=== PATIENT | female | born 1990 | race Hispanic/Latino ===

== ENCOUNTER → 2022-06-17 08:54 | Outpatient (CLI) | payer OTHER, SELFPAY ==
[2022-06-17 13:40] LABS: Urine N gonorrhoeae NOT DETECTED
[2022-06-17 13:52] LABS: Urine Chlamydia NOT DETECTED
== END ==
PROVIDERS: Visit Provider Obstetrics & Gynecology
DX: Z34.01 Encounter for supervision of normal first pregnancy, first trimester (principal); Z3A.08 8 weeks gestation of pregnancy
CPT/HCPCS: 87491; 87591

== ENCOUNTER → 2022-07-16 09:34 | Outpatient (CLI) | payer OTHER, SELFPAY ==
[2022-07-16 12:35] LABS: Appearance Urine UA CLEAR; Bilirubin Urine UA NEGATIVE (NEGATIVE); Color Urine UA YELLOW; Glucose Urine UA NEGATIVE (Negative); Ketones Urine UA NEGATIVE (NEGATIVE); Leukocyte Esterase Urine UA NEGATIVE (NEGATIVE); Nitrite Urine UA NEGATIVE (Negative); Occult Blood Urine UA NEGATIVE (Negative); Protein Urine UA NEGATIVE (Negative); Specific Gravity Urine UA 1.015 (1.000-1.035); Urobilinogen Urine UA 0.2 E.U./dL (0.2)
[2022-07-16 12:51] LABS: pH Urine UA 6.5 (4.5-8.0)
== END ==
PROVIDERS: Visit Provider Obstetrics & Gynecology
DX: Z34.01 Encounter for supervision of normal first pregnancy, first trimester (principal)
CPT/HCPCS: 81003; 87086

== ENCOUNTER → 2022-07-16 09:51 | Outpatient (CLI) | payer OTHER, SELFPAY ==
[2022-07-16 10:56] LABS: Add Manual Diff / Slide Review NO; Basophils Absolute Auto 0 /uL (0-100); Basophils Percent Auto 0.3 % (0-2); Eosinophils Absolute Auto 200 /uL (0-450); Eosinophils Percent Auto 2.7 % (2-4); Hematocrit 36.8 % (36-46); Lymphocytes Absolute Auto 1500 /uL (1100-4500); Lymphocytes Percent Auto 16.7 % (25-40); Mean Corpuscular HGB Conc 32.5 % (30-36); Mean Corpuscular Hemoglobin 25.6 PG (26-34); Mean Corpuscular Volume 78.8 fL (80-100); Monocytes Absolute Auto 600 /uL (0-900); Neutrophils Absolute Auto 6500 /uL (1500-7000); Neutrophils Percent Auto 73.3 % (50-75); Platelet Count 135 X10^3/uL (150-400); Red Blood Cell Count 4.67 X10^6/uL (4.0-5.2); Red Cell Distribution Width 19.1 % (11.6-14.8); White Blood Cell Count 8.8 X10^3/uL (4.5-11.0)
[2022-07-16 11:29] LABS: Alanine Aminotransferase 27 IU/L (<35); Alkaline Phosphatase 83 U/L (38-126); Aspartate Aminotransferase 43 IU/L (14-36); BUN Creatinine Ratio 6.5 (6-22); Bilirubin Total 0.7 mg/dL (0.2-1.3); Blood Urea Nitrogen 4 mg/dL (7-17); Carbon Dioxide 23 mmol/L (22-32); Chloride 104 mmol/L (98-107); Estimated Glomerular Filt Rate > 60 mL/min (>60); Globulin 4.2 g/dL (1.7-4.1); Glucose 80 mg/dL (70-100); HEMOLYSIS < 15 (0-50); Potassium 3.8 mmol/L (3.4-5.1); Sodium 135 mmol/L (137-145); Total Protein 8.2 g/dL (6.3-8.2)
[2022-07-16 20:11] LABS: HIV 1 & 2 Ab/Ag 4th Gen Combo NEGATIVE (NEGATIVE); Hep C Virus Ab w/Reflex Quant NEGATIVE s/c (NEGATIVE)
[2022-07-17 08:48] LABS: Varicella IgG Antibody 1800 index (Immune >165)
[2022-07-18 15:43] LABS: Hepatitis B Surface Antigen NEGATIVE s/c (NEGATIVE)
[2022-07-31 12:59] LABS: RPR Screen Reactive
== END ==
PROVIDERS: Referring Provider Obstetrics & Gynecology; Visit Provider Obstetrics & Gynecology
DX: Z34.01 Encounter for supervision of normal first pregnancy, first trimester (principal); R79.89 Other specified abnormal findings of blood chemistry
CPT/HCPCS: 36415; 80053; 80055; 81003; 86787; 86803; 86850; 86870; 86880; 86900; 86901; 87086; 87389

== ENCOUNTER → 2022-08-19 10:47 | Outpatient (CLI) | payer OTHER, SELFPAY ==
[2022-08-19 13:03] LABS: HEMOLYSIS < 15 (0-50); Iron 92 ug/dL (37-170)
[2022-08-19 13:16] LABS: Percent Iron Saturation 21 % (15-50); Total Iron Binding Capacity 439 ug/dL (265-497); Transferrin 306 mg/dL (206-381)
[2022-08-19 16:03] LABS: Ferritin 15 ng/mL (6-137)
[2022-08-21 19:49] LABS: AFP Value 60.6 ng/mL (.); Gest Age on Col Date 17.1 weeks (.); Insulin Dep Diabetes No (.); OSBR Risk 1IN 1630 (.); Results Report (.); Test Results *Screen Negative* (.)
== END ==
PROVIDERS: Referring Provider Obstetrics & Gynecology; Visit Provider Obstetrics & Gynecology
DX: Z34.82 Encounter for supervision of other normal pregnancy, second trimester (principal); R71.8 Other abnormality of red blood cells; Z3A.17 17 weeks gestation of pregnancy
CPT/HCPCS: 36415; 82105; 82728; 83540; 83550

== ENCOUNTER → 2022-09-18 09:26 | Outpatient (CLI) | payer OTHER, SELFPAY ==
--- NOTE | 2022-09-18 09:29 | DI.US.S_ITS ---
PROCEDURE: US OB >= 14 WEEKS FETUS INDICATIONS: ANATOMY OUTSIDE/PRIOR DATING DATA: Last menstrual period (LMP): 04/21/2022. LMP-based estimated date of delivery (CLAYTON): 01/26/2023. First dating scan (date and location): 06/17/2022 at referring physician's office. Estimated date of delivery ([place]) from first dating scan: 01/20/2023. The calculations are made using the working CLAYTON of 01/20/2023. TECHNIQUE: Real-time scanning was performed of the fetus, with image documentation and biometric measurements. COMPARISON: [facility], , OB <= 14 WEEKS FETUS, 06/17/2022, 9:40. FINDINGS: General: A single living intrauterine gestation is present. Presentation: Vertex. Placenta: Placental position is posterior , without previa. Amniotic fluid index: 14.9 cm, normal range is 5-24 cm. Single deepest vertical pocket is 4.1 cm. heart rate: 158 beats per minute. Maternal cervical canal: 4.1 cm long. Normal lower limit is 2.5 cm. biometrics: Biparietal diameter: 22 weeks 5 days Head circumference: 23 weeks 0 day Abdominal circumference: 22 weeks 2 days Femur length: 22 weeks 6 days Clinically estimated gestational age: 22 weeks 2 days Composite gestational age from present scan: 22 weeks 5 days Estimated weight and percentile: 513 g; 57% Anatomic survey: Neuro: Ventricles are non-dilated at less than 10 mm. Cisterna magna is normal at 3-11 mm. Cerebellum is normal in size and morphology. Nuchal skin fold: Normal at less than 6 mm between 14-21 weeks gestational age. Face: Nose and lips, facial profile are normal. Spine: No evidence for spina bifida. Heart: 4-chambered heart is present, with normal ventricular outflow tracts. Diaphragm: Diaphragm is intact. Stomach: Left-sided stomach is present. Kidneys: No hydronephrosis. Normal is less than 5 mm in 2nd trimester, less than 7 mm in 3rd trimester. Cord: 3-vessel cord has orthotopic insertion. Bladder: Normal in size. Extremities: All 4 extremities identified. IMPRESSION: 1. A single living intrauterine gestation with appropriate interval growth. 2. Normal anatomic survey. We strive to produce accurate, complete, and clear reports of imaging services. To assist us in improving patient care, this report was composed using standard report templates and voice recognition software. Therefore, it may contain abnormal punctuation, insertions and/or omissions. Occasional wrong-word or sound-alike substitutions may occur. Though we review the report and make efforts to correct it, we do recommend that the report be read carefully in proper context to recognize any text inaccuracies. Dictated by: Meenakshi Ernst M.D. on 09/18/2022 at 12:37 Approved by: Meenakshi Ernst M.D. on 09/18/2022 at 12:42
== END ==
PROVIDERS: Referring Provider Obstetrics & Gynecology; Visit Provider Obstetrics & Gynecology
DX: Z36.89 Encounter for other specified antenatal screening (principal); O99.112 Other diseases of the blood and blood-forming organs and certain disorders involving the immune mechanism complicating pregnancy, second trimester; D69.6 Thrombocytopenia, unspecified; R71.8 Other abnormality of red blood cells; Z3A.22 22 weeks gestation of pregnancy
CPT/HCPCS: 36415; 76811; 83021; 85027

== ENCOUNTER → 2022-09-18 10:24 | Outpatient (CLI) | payer OTHER, SELFPAY ==
[2022-09-18 12:28] LABS: Hematocrit 32.7 % (36-46); Mean Corpuscular HGB Conc 33.6 % (30-36); Mean Corpuscular Hemoglobin 28.2 PG (26-34); Mean Corpuscular Volume 83.9 fL (80-100); Platelet Count 112 X10^3/uL (150-400); Red Cell Distribution Width 15.8 % (11.6-14.8); White Blood Cell Count 8.3 X10^3/uL (4.5-11.0)
== END ==
PROVIDERS: Referring Provider Obstetrics & Gynecology; Visit Provider Obstetrics & Gynecology
DX: O99.119 Other diseases of the blood and blood-forming organs and certain disorders involving the immune mechanism complicating pregnancy, unspecified trimester (principal); D69.6 Thrombocytopenia, unspecified; R71.8 Other abnormality of red blood cells
CPT/HCPCS: 36415; 83021; 85027

== ENCOUNTER → 2022-09-30 14:24 | Outpatient (CLI) | payer OTHER, SELFPAY ==
[2022-10-02 04:36] LABS: Candida species Positive (Negative); Gardnerella vaginalis Negative (Negative); Trichomoas vaginalis Negative (Negative)
== END ==
PROVIDERS: Visit Provider Obstetrics & Gynecology
DX: M54.9 Dorsalgia, unspecified (principal); O99.891 Other specified diseases and conditions complicating pregnancy; N89.8 Other specified noninflammatory disorders of vagina; D69.6 Thrombocytopenia, unspecified
CPT/HCPCS: 36415; 85049; 87086; 87255; 87480; 87510; 87660

== ENCOUNTER → 2022-09-30 14:53 | Outpatient (CLI) | payer OTHER, SELFPAY ==
[2022-09-30 15:25] LABS: Platelet Count 114 X10^3/uL (150-400)
== END ==
PROVIDERS: Referring Provider Obstetrics & Gynecology; Visit Provider Obstetrics & Gynecology
DX: D69.6 Thrombocytopenia, unspecified (principal)
CPT/HCPCS: 36415; 85049

== ENCOUNTER → 2022-10-23 11:13 | Outpatient (CLI) | payer OTHER, SELFPAY ==
[2022-10-23 12:53] LABS: Hematocrit 35.7 % (36-46); Hemoglobin 11.8 g/dL (12.0-16.0); Mean Corpuscular HGB Conc 33.2 % (30-36); Mean Corpuscular Hemoglobin 28.5 PG (26-34); Mean Corpuscular Volume 85.9 fL (80-100); Platelet Count 100 X10^3/uL (150-400); Red Blood Cell Count 4.15 X10^6/uL (4.0-5.2); Red Cell Distribution Width 15.6 % (11.6-14.8); White Blood Cell Count 9.1 X10^3/uL (4.5-11.0)
[2022-10-23 14:05] LABS: GTT (PREG) 1 Hour PP 50gm Dose 94 mg/dL (76-139)
== END ==
PROVIDERS: Referring Provider Obstetrics & Gynecology; Visit Provider Obstetrics & Gynecology
DX: O99.019 Anemia complicating pregnancy, unspecified trimester; Z3A.24 24 weeks gestation of pregnancy; D69.6 Thrombocytopenia, unspecified
CPT/HCPCS: 36415; 82950; 85027

== ENCOUNTER → 2022-11-26 13:52 | Outpatient (CLI) | payer OTHER, SELFPAY ==
[2022-11-26 14:20] LABS: Add Manual Diff / Slide Review NO; Basophils Absolute Auto 100 /uL (0-100); Basophils Percent Auto 0.5 % (0-2); Eosinophils Absolute Auto 300 /uL (0-450); Eosinophils Percent Auto 2.6 % (2-4); Hematocrit 34.1 % (36-46); Hemoglobin 11.3 g/dL (12.0-16.0); Lymphocytes Absolute Auto 1400 /uL (1100-4500); Lymphocytes Percent Auto 12.7 % (25-40); Mean Corpuscular Hemoglobin 29.1 PG (26-34); Mean Corpuscular Volume 88.1 fL (80-100); Monocytes Absolute Auto 1100 /uL (0-900); Monocytes Percent Auto 9.5 % (3-14); Neutrophils Absolute Auto 8200 /uL (1500-7000); Neutrophils Percent Auto 74.7 % (50-75); Platelet Count 103 X10^3/uL (150-400); Red Blood Cell Count 3.87 X10^6/uL (4.0-5.2); Red Cell Distribution Width 15.5 % (11.6-14.8); White Blood Cell Count 11.1 X10^3/uL (4.5-11.0)
== END ==
PROVIDERS: Referring Provider Physician Assistant Medical; Visit Provider Physician Assistant Medical
DX: O99.119 Other diseases of the blood and blood-forming organs and certain disorders involving the immune mechanism complicating pregnancy, unspecified trimester (principal); D69.6 Thrombocytopenia, unspecified
CPT/HCPCS: 36415; 85025

== ENCOUNTER 2022-12-01 16:08 | Inpatient (IN) | payer OTHER, SELFPAY ==
[2022-12-01 16:10] VITALS: BP 193/109; PULSE 105; RESP 16; TEMP 36.6; O2SAT 97; BMI 42.4
--- NOTE | 2022-12-01 16:15 | PC.NURSE ---
patient was seen at the walk in clinic who sent her here because she is a 32 weeks and her blood pressure 190's systolic. she complains of 1 week of shortness of breath that has been worse over the past few days. she reports some sinus pressure and a headache. she reports bilateral hands and feet swelling. she denies fevers but reports chills. denies abdominal pain. Dr. Yudi gunn.
[2022-12-01 16:24] VITALS: PULSE 99; O2SAT 98
--- NOTE | 2022-12-01 16:25 | ED_ITS ---
HPI - General Chief complaint: Hypertension Stated complaint: High BP/32 Weeks /R/O Preeclampsia/WIC Time Seen by Provider: 12/01/22 16:14 Source: patient and old records reviewed Mode of arrival: Wheelchair Limitations: no limitations History of Present Illness HPI Narrative: This is a 32-year-old female at 32 weeks with no history of gestational hypertension or diabetes. Patient states she is had a little bit of a headache kind of felt shaky and just unwell for the past 2 or 3 days. She states feels a little short of breath today. No chest pain. She has not had any abdominal pain although she states when they palpated her abdomen in the walk-in clinic she would some white upper quadrant discomfort. She denies any nausea or vomiting. No GI or urinary symptoms. She states baby has been moving. No vaginal fluid leaks or bleeding. Patient was noted the walk-in clinic to be hypertensive have a headache and was recommended to come to us. Patient states she has not noticed any twitching or hyperreflexia. She states she is following with OB, Dr. [facility] and been told during her that she has had normal blood pressures. She states her glucose testing was normal, her only medications are Tylenol and . She states she is had wisdom tooth surgery in the past but denies any other prior surgeries. Patient states no tobacco, no alcohol, no illicit. No known drug allergies. She is unsure for family history states adopted. Her is currently deployed in [facility] with the . She states her mother lives in [place]. Related Data Home Medications Medication Instructions Recorded Confirmed cetirizine 10 mg capsule (Zyrtec) 10 mg PO DAILY PRN 06/06/22 12/01/22 prenat.vits,ken,[id number] 1 tab PO DAILY 06/06/22 12/01/22 Previous Rx's Medication Instructions Recorded ferrous sulfate 325 mg (65 mg 325 mg PO DAILY #90 tabs 09/19/22 iron) tablet nystatin-triamcinolone 100,000 1 applic topical BID 10 days #15 10/02/22 unit/gram-0.1 % topical ointment grams Allergies Allergy/AdvReac Type Severity Reaction Status Date / Time No Known Allergies Allergy Verified 12/01/22 15:42 Review of Systems Review of Systems ROS Unobtainable: All systems reviewed & are unremarkable except as noted in HPI and below Exam Narrative Exam Narrative: GENERAL: Alert and oriented x three, female with BMI of 42 mild distress. HEENT: Head normocephalic, atraumatic, EOMI, pupils reactive, face symmetric, moist mucous membranes NECK: Supple, full range of motion CARDIOVASCULAR: Slightly tachycardic regular rate and rhythm without murmurs, rubs or gallops. No JVD. Positive edema bilateral lower extremities. RESPIRATORY: Breath sounds equal bilaterally, no wheezes rales or rhonchi. No tachypnea or accessory muscle use. ABDOMEN: Soft, nontender on exam for myself. Normoactive bowel sounds all 4 quadrants. No guarding or rebound, rigidity, no mass, gravid. Nontender. No contractions palpated. : No CVA tenderness EXTREMITIES: Normal range of motion, no clubbing, +edema. Neurovascularly intact NEUROLOGICAL: Cranial nerves II through XII grossly intact. Moving all extremities, patient does not have any hyperreflexia patellar bilaterally. No clonus. SKIN: Warm, dry, no petechiae, no rashes or lesions. Initial Vital Signs Initial Vital Signs: Vital Signs Temperature 97.8 F 12/01/22 16:10 Pulse Rate 105 H 12/01/22 16:10 Respiratory Rate 16 12/01/22 16:10 Blood Pressure 193/109 H 12/01/22 16:10 Pulse Oximetry 97 12/01/22 16:10 Oxygen Delivery Method 12/01/22 16:10 Course Orders Ordered: ED Orders 12/01/22 16:28 CBC Auto Diff [Complete Blood Count AUTO DIFF] Stat CMP [Comprehensive Metabolic Panel] Stat Lipase Stat PTT [Partial Thromboplastin Time] Stat Prothrombin Time INR Stat Uric Acid Stat 12/01/22 16:29 Covid-19 + FLU A/B + RSV - PCR Stat 12/01/22 16:34 US abdomen limited Stat Lactated Ringer's (Lactated Ringers) 1,000 mls @ 42 mls/hr IV CONT RIMA Last Admin: 12/01/22 17:17 Dose: 42 mls/hr Documented By: MERCED Magnesium Sulfate (Magnesium Sulfate) 20 gm in 500 mls @ 50 mls/hr IV CONT RIMA Last Admin: 12/01/22 18:18 Dose: 50 mls/hr Documented By: MERCED Co-signed By: GUILLERMO Labetalol HCl (Labetalol 20 Mg/4 Ml Syringe) 20 mg IV NOW ONE; Protocol Stop: 12/01/22 18:28 Discontinued Medications Magnesium Sulfate 6 gm/ Sodium (Chloride) 112 mls @ 112 mls/hr IV NOW ONE Stop: 12/01/22 17:41 Last Admin: 12/01/22 17:05 Dose: 112 mls/hr Documented By: MERCED Magnesium Sulfate 5 gm/Magnesium Sulfate 1 gm/ Sodium Chloride 112 mls @ 112 mls/hr IV NOW ONE Stop: 12/01/22 18:14 Labetalol HCl (Labetalol 20 Mg/4 Ml Syringe) 10 mg IV NOW ONE; Protocol Stop: 12/01/22 16:39 Last Admin: 12/01/22 16:59 Dose: 10 mg Documented By: MERCED Labetalol HCl (Labetalol 20 Mg/4 Ml Syringe) 10 mg IV NOW ONE; Protocol Stop: 12/01/22 17:34 Last Admin: 12/01/22 17:35 Dose: 10 mg Documented By: MERCED Labetalol HCl (Labetalol 20 Mg/4 Ml Syringe) 10 mg IV NOW ONE; Protocol Stop: 12/01/22 17:49 Labetalol HCl (Labetalol 100 Mg Tablet) 200 mg PO NOW ONE Stop: 12/01/22 18:10 Consultations Consultation #1: Dr. Francis, faculty criminal justice: Discussed with Dr. Francis patient is quite hypertensive 180s to 190s systolic with 110s diastolic onto checks and patient was 196/110 at the walk-in clinic. She is had headache, some mild right upper quadrant pain. Labs have been obtained discussed will start labetalol 10 mg IV and magnesium 6 cramps. He agrees with plan to transfer patient over to labor and delivery and he will see the patient over there. Time: 16:42 Vital Signs Vital signs: Vital Signs - 8 hr 12/01/22 16:10 12/01/22 16:24 12/01/22 16:30 Temperature 97.8 F Pulse Rate 105 H 99 H Respiratory Rate 16 Blood Pressure 193/109 H 187/90 H Pulse Oximetry 97 98 Oxygen Delivery Method Room Air 12/01/22 16:30 Temperature Pulse Rate 86 Respiratory Rate Blood Pressure Pulse Oximetry 100 Oxygen Delivery Method Room Air MDM - OB/Uterine Contractions Lab Data Result diagrams: 12/01/22 16:28 12/01/22 16:28 Labs: Lab Results 12/01/22 12/01/22 12/01/22 Range/Units 16:21 16:28 16:28 WBC 11.6 H (4.5-11.0) X10^3/uL RBC 4.02 (4.0-5.2) X10^6/uL Hgb 11.7 L (12.0-16.0) g/dL Hct 35.1 L (36-46) % MCV 87.4 (80-100) fL MCH 29.2 (26-34) PG MCHC 33.4 (30-36) % RDW 15.5 H (11.6-14.8) % Plt Count 106 L (150-400) X10^3/uL Neut % (Auto) 79.1 H (50-75) % Lymph % (Auto) 10.5 L (25-40) % Russell % (Auto) 7.9 (3-14) % Eos % (Auto) 1.9 L (2-4) % Baso % (Auto) 0.6 (0-2) % Neut # (Auto) 9100 H (4000-6159) /uL Lymph # (Auto) 1200 (9735-2054) /uL Russell # (Auto) 900 (0-900) /uL Eos # (Auto) 200 (0-450) /uL Baso # (Auto) 100 (0-100) /uL PT 11.3 (10.1-12.7) SECONDS INR 1.0 (0.9-1.3) APTT 55 H (26-36) SECONDS Sodium (137-145) mmol/L Potassium (3.4-5.1) mmol/L Chloride (98-107) mmol/L Carbon Dioxide (22-32) mmol/L BUN (7-17) mg/dL Creatinine (0.52-1.04) mg/dL Estimated GFR (>60) mL/min BUN/Creatinine Ratio (6-22) Glucose (70-100) mg/dL Uric Acid (2.5-6.2) mg/dL Calcium (8.4-10.2) mg/dL Total Bilirubin (0.2-1.3) mg/dL AST (14-36) IU/L ALT (<35) IU/L Alkaline Phosphatase (38-126) U/L Total Protein (6.3-8.2) g/dL Albumin (3.5-5.0) g/dL Globulin (1.7-4.1) g/dL Albumin/Globulin Ratio (1.0-2.8) Lipase (23-300) U/L U Random Total Protein 1492 H (0-12) mg/dL Urine Creatinine 57.7 mg/dL Protein/Creatinin Ratio 25.85 GRAM/24H SARS-CoV-2 (PCR) (Negative) Influenza A (RT-PCR) (NEGATIVE) Influenza B (RT-PCR) (NEGATIVE) RSV (PCR) (Negative) 12/01/22 12/01/22 Range/Units 16:28 16:29 WBC (4.5-11.0) X10^3/uL RBC (4.0-5.2) X10^6/uL Hgb (12.0-16.0) g/dL Hct (36-46) % MCV (80-100) fL MCH (26-34) PG MCHC (30-36) % RDW (11.6-14.8) % Plt Count (150-400) X10^3/uL Neut % (Auto) (50-75) % Lymph % (Auto) (25-40) % Russell % (Auto) (3-14) % Eos % (Auto) (2-4) % Baso % (Auto) (0-2) % Neut # (Auto) (9918-7015) /uL Lymph # (Auto) (4710-0131) /uL Russell # (Auto) (0-900) /uL Eos # (Auto) (0-450) /uL Baso # (Auto) (0-100) /uL PT (10.1-12.7) SECONDS INR (0.9-1.3) APTT (26-36) SECONDS Sodium 135 L (137-145) mmol/L Potassium 3.6 (3.4-5.1) mmol/L Chloride 108 H (98-107) mmol/L Carbon Dioxide 20 L (22-32) mmol/L BUN 17 (7-17) mg/dL Creatinine 0.90 (0.52-1.04) mg/dL Estimated GFR > 60 (>60) mL/min BUN/Creatinine Ratio 18.9 (6-22) Glucose 89 (70-100) mg/dL Uric Acid 6.3 H (2.5-6.2) mg/dL Calcium 8.2 L (8.4-10.2) mg/dL Total Bilirubin 0.7 (0.2-1.3) mg/dL AST 42 H (14-36) IU/L ALT 24 (<35) IU/L Alkaline Phosphatase 235 H (38-126) U/L Total Protein 6.9 (6.3-8.2) g/dL Albumin 3.1 L (3.5-5.0) g/dL Globulin 3.8 (1.7-4.1) g/dL Albumin/Globulin Ratio 0.8 L (1.0-2.8) Lipase 56 (23-300) U/L U Random Total Protein (0-12) mg/dL Urine Creatinine mg/dL Protein/Creatinin Ratio GRAM/24H SARS-CoV-2 (PCR) Negative (Negative) Influenza A (RT-PCR) Flu a negative (NEGATIVE) Influenza B (RT-PCR) Flu b negative (NEGATIVE) RSV (PCR) Negative (Negative) Urine Dip Bedside Urine Glucose Negative Bedside Urine Bilirubin - Negative Bedside Urine Ketone - Negative Urine Specific [place] 1.015 Bedside Urine Occult Blood + Bedside Urine pH 6.0 Bedside Urine Protein +++ 300 Bedside Urine Urobilinogen - Negative Bedside Urine Nitrite - Negative Bedside Urine Leukocytes - Negative Esterase MDM Narrative Medical decision making narrative: This is a 32-year-old female at approximately 32 weeks with so far uneventful. Patient does not have any known medical issues she is spent almost for the last couple days has symptoms with headache, some right upper quadrant discomfort increasing swelling for the last few days and found to be hypertensive in the walk-in clinic sent over here and is still persistently hypertensive. Patient's urine is positive for protein. Patient examined and findings are concerning for preeclampsia she is not hyperreflexic on examination but is edematous legs. Patient OB visits were noted she was seen on 11/26/2022 at 32 weeks and 1 day, she low platelets noted to be 135, blood pressures on prior visits from June until November are noted to range from 116-128 with diastolics maximum of 84 typically in the 60s to 70s. Labs were obtained and sent, spoke with Dr. Francis faculty criminal justice plan for labetalol 10 mg IV magnesium 6 g to be given over 30-40 minutes and agrees with plan to admit patient to L&D. We had called the L and D for [facility] and they requested that we go ahead and send the patient over and I spoke Dr. Francis agrees with this plan. He will see patient over on L and D shortly. Discharge Plan Departure Patient Disposition: Admitted As Inpatient Clinical Impression: Pre-eclampsia, 32 weeks gestation of Admit Date/Time: 12/01/22 16:47 Admit Provider: Meng Francis
[2022-12-01 16:30] VITALS: BP 187/90; PULSE 86; O2SAT 100
[2022-12-01 16:47] LABS: Add Manual Diff / Slide Review NO; Basophils Absolute Auto 100 /uL (0-100); Basophils Percent Auto 0.6 % (0-2); Eosinophils Absolute Auto 200 /uL (0-450); Eosinophils Percent Auto 1.9 % (2-4); Hematocrit 35.1 % (36-46); Hemoglobin 11.7 g/dL (12.0-16.0); Lymphocytes Absolute Auto 1200 /uL (1100-4500); Lymphocytes Percent Auto 10.5 % (25-40); Mean Corpuscular HGB Conc 33.4 % (30-36); Mean Corpuscular Hemoglobin 29.2 PG (26-34); Mean Corpuscular Volume 87.4 fL (80-100); Monocytes Absolute Auto 900 /uL (0-900); Monocytes Percent Auto 7.9 % (3-14); Neutrophils Absolute Auto 9100 /uL (1500-7000); Neutrophils Percent Auto 79.1 % (50-75); Platelet Count 106 X10^3/uL (150-400); Red Blood Cell Count 4.02 X10^6/uL (4.0-5.2); Red Cell Distribution Width 15.5 % (11.6-14.8); White Blood Cell Count 11.6 X10^3/uL (4.5-11.0)
[2022-12-01 16:50] LABS: Prothrombin Time 11.3 SECONDS (10.1-12.7)
[2022-12-01 16:53] LABS: PTT Partial Thromboplastin Tim 55 SECONDS (26-36)
[2022-12-01 16:55] LABS: Alanine Aminotransferase 24 IU/L (<35); Albumin 3.1 g/dL (3.5-5.0); Albumin Globulin Ratio 0.8 (1.0-2.8); Alkaline Phosphatase 235 U/L (38-126); Aspartate Aminotransferase 42 IU/L (14-36); BUN Creatinine Ratio 18.9 (6-22); Bilirubin Total 0.7 mg/dL (0.2-1.3); Blood Urea Nitrogen 17 mg/dL (7-17); Calcium 8.2 mg/dL (8.4-10.2); Carbon Dioxide 20 mmol/L (22-32); Chloride 108 mmol/L (98-107); Estimated Glomerular Filt Rate > 60 mL/min (>60); Globulin 3.8 g/dL (1.7-4.1); Glucose 89 mg/dL (70-100); HEMOLYSIS < 15 (0-50); Lipase 56 U/L (23-300); Potassium 3.6 mmol/L (3.4-5.1); Sodium 135 mmol/L (137-145); Total Protein 6.9 g/dL (6.3-8.2); Uric Acid 6.3 mg/dL (2.5-6.2)
[2022-12-01 16:59] VITALS: BP 205/125
[2022-12-01] MEDS: LABETALOL 20 MG/4 ML SYRINGE 10 MG IV ×2 (16:59→17:35)
[2022-12-01] MEDS: MAGNESIUM SULFATE 6 GM in SODIUM CHLORIDE 0.9% 100 ML IV (17:05)
[2022-12-01] MEDS: LACTATED RINGERS 1,000 ML 42 ML IV (17:17)
[2022-12-01 17:49] LABS: Influenza A - CEPHEID Flu A NEGATIVE (NEGATIVE); Influenza B - CEPHEID Flu B NEGATIVE (NEGATIVE); Respiratory Syncytial Virus Negative (Negative)
[2022-12-01 17:50] LABS: COVID-19 CEPHEID 4-PLEX PCR Negative (Negative)
[2022-12-01 18:02] LABS: Creatinine Urine Random 57.7 mg/dL
[2022-12-01] MEDS: MAGNESIUM SULFATE 20 GM/500 ML IV.SOLN IV (18:18)
[2022-12-01 18:20] LABS: Protein (Total) Urine Random 1492 mg/dL (0-12); Protein Creatinine Ratio Urine 25.85 GRAM/24H
--- NOTE | 2022-12-01 18:42 | PM.OBHP.1 ---
OB HPI Date/Time Date of admission: 12/01/22 Date Patient Seen: 12/01/22 Time Patient Seen: 17:00 History of Present Condition Chief complaint: High BP/32 Weeks /R/O Preeclampsia/WIC : 1 Para: 0 Estimated Date of Delivery: 01/20/23 Estimated Gestational Age (weeks): 32+1 Narrative: Chely Zhu is a 32 year old female Comments: care since 8 weeks gestation, unremakable till 48 hrs prior to admission when developed serve HANEY, and upper body swelling Indications Indication for induction OB: gestational HTN/pre-eclampsia History of Present care: good care and pounds weight gain (21) Dating criteria: LMP confirmed by 1st trimester US Narrative: none until 48 hrs ago Preadmission Labs -: Antibody screen: negative, Cystic fibrosis screen: unknown, GBS status: unknown, HBsAG: negative, HIV: negative, HSV 1: negative, HSV 2: negative and RPR/VDLR: negative -: Chlamydia screen: not detected and Gonorrhea screen: not detected -: Rubella: immune and Varicella: immune HCT: 11.1 Prior (ies) History: p0 Evaluation Evaluation Baseline heart rate: 145 Variability: Average (6-10) monitor accelerations: Present Contraction Frequency (minutes): 0 Dilation: Closed Effacement: 0-30% station: -3 Position of cervix: posterior [facility] Medical History Elevated liver enzymes Seasonal allergies Surgical History Anesthesia History of removal of skin mole [place] teeth extracted Social History marital status: number of children: 0 household members: spouse and family (sister) lives independently: Yes housing: apartment pets and animals: Yes (1 dog) education level: college (pete's degree) 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[employer]) current occupational exposures/hazards: No special rani needs: No seatbelt use: always water heater temp set < 120 deg: Yes working smoke detector in home: Yes carbon monox detector in home: Yes firearms in home: No do you feel safe at home: Yes Smoking Status: Never smoker second hand exposure: No alcohol intake: former (very rarely, not while ) substance use type: does not use during the past year weight has: remained stable well-balanced diet: rarely or never daily servings fruits/ve-1 caffeine: Yes (aware of 200mg limit) Type(s) of exercise: walking and other (lifting at work) Meds Home Medications and Allergies Home Medications Medication Instructions Recorded Confirmed Type cetirizine 10 mg capsule (Zyrtec) 10 mg PO DAILY PRN 06/06/22 12/01/22 History prenat.vits,ken,vfx-[id number] 1 tab PO DAILY 06/06/22 12/01/22 History ferrous sulfate 325 mg (65 mg 325 mg PO DAILY #90 tabs 09/19/22 12/01/22 Rx iron) tablet nystatin-triamcinolone 100,000 1 applic topical BID 10 days #15 10/02/22 12/01/22 Rx unit/gram-0.1 % topical ointment grams Allergies Allergy/AdvReac Type Severity Reaction Status Date / Time No Known Allergies Allergy Verified 12/01/22 15:42 Review of Systems Review of Systems Narrative: unchanged from OB Exam Vital signs Blood Pressure: 205/125 Pulse Rate: 93 Respiratory Rate: 16 Temperature: 98 F Narrative Exam Narrative: +1 pitting edema ankles, negative clonus, facial and and swelling HENCA Head: normocephalic and atraumatic Eyes General: appearance normal, both eyes and all related structures Resp Effort & Inspection: normal respiratory effort and able to speak in complete sentences Auscultation: clear to auscultation bilaterally Cardio Rate: regular rate Rhythm: regular rhythm Extremities Lower extremity: Yes edema DTR's: Rt Patellar: 0, Lt Patellar: 0, Rt Ankle: 0, Lt Ankle: 0, Rt Brachial: 0 and Lt Brachial: 0 GI Inspection: obesity Percussion: Yes normal to percussion Auscultation: normal bowel sounds Presentation: vertex Estimated Weight (lbs): 3 Objective Labs Result Diagrams: 12/01/22 16:28 12/01/22 16:28 Labs: Laboratory Results - last 24 hr 12/01/22 12/01/22 12/01/22 16:21 16:28 16:28 WBC 11.6 H RBC 4.02 Hgb 11.7 L Hct 35.1 L MCV 87.4 MCH 29.2 MCHC 33.4 RDW 15.5 H Plt Count 106 L Neut % (Auto) 79.1 H Lymph % (Auto) 10.5 L [place] % (Auto) 7.9 Eos % (Auto) 1.9 L Baso % (Auto) 0.6 Neut # (Auto) 9100 H Lymph # (Auto) 1200 [place] # (Auto) 900 Eos # (Auto) 200 Baso # (Auto) 100 PT 11.3 INR 1.0 APTT 55 H Sodium Potassium Chloride Carbon Dioxide BUN Creatinine Estimated GFR BUN/Creatinine Ratio Glucose Uric Acid Calcium Total Bilirubin AST ALT Alkaline Phosphatase Total Protein Albumin Globulin Albumin/Globulin Ratio Lipase U Random Total Protein 1492 H Urine Creatinine 57.7 Protein/Creatinin Ratio 25.85 SARS-CoV-2 (PCR) Influenza A (RT-PCR) Influenza B (RT-PCR) RSV (PCR) 12/01/22 12/01/22 16:28 16:29 WBC RBC Hgb Hct MCV MCH MCHC RDW Plt Count Neut % (Auto) Lymph % (Auto) [place] % (Auto) Eos % (Auto) Baso % (Auto) Neut # (Auto) Lymph # (Auto) [place] # (Auto) Eos # (Auto) Baso # (Auto) PT INR APTT Sodium 135 L Potassium 3.6 Chloride 108 H Carbon Dioxide 20 L BUN 17 Creatinine 0.90 Estimated GFR > 60 BUN/Creatinine Ratio 18.9 Glucose 89 Uric Acid 6.3 H Calcium 8.2 L Total Bilirubin 0.7 AST 42 H ALT 24 Alkaline Phosphatase 235 H Total Protein 6.9 Albumin 3.1 L Globulin 3.8 Albumin/Globulin Ratio 0.8 L Lipase 56 U Random Total Protein Urine Creatinine Protein/Creatinin Ratio SARS-CoV-2 (PCR) Negative Influenza A (RT-PCR) Flu a negative Influenza B (RT-PCR) Flu b negative RSV (PCR) Negative Assessment and Plan Assessment and Plan Assessment and Plan narrative: 32 weeks with preeclampsia with severe features Time Spent with Patient Total time spent with greater than 50% in coordination of care (as documented) at patient's floor/unit and/or counseling patient:: Greater than 35 minutes
[2022-12-01 18:46] VITALS: BP 186/109
[2022-12-01] MEDS: LABETALOL 20 MG/4 ML SYRINGE IV (18:46)
[2022-12-01] MEDS: BETAMETHASONE 30 MG/5 ML MDV 12 MG IM (18:47)
[2022-12-01] MEDS: LABETALOL 100 MG TABLET 200 MG PO (18:48)
[2022-12-01 18:58] VITALS: BP 205/125; PULSE 93; RESP 16; TEMP 36.6
[2022-12-01] MEDS: NIFEdipine 10 MG CAPSULE PO ×2 (19:17→19:41)
[2022-12-01] MEDS: ACETAMINOPHEN 325 MG TABLET 975 MG PO (19:39)
== END 2022-12-01 20:37 | disposition short-term general hospital (02) | DRG 833 ==
LOC: ED 16:26 → LABOR 16:48
PROVIDERS: Admitting Provider Obstetrics & Gynecology; Emergency Provider Emergency Medicine; Referring Provider Emergency Medicine; Visit Provider Obstetrics & Gynecology
DX: O14.93 Unspecified pre-eclampsia, third trimester (principal); Z3A.32 32 weeks gestation of pregnancy; Z20.822 Contact with and (suspected) exposure to COVID-19
CPT/HCPCS: 0241U; 36415; 59025; 59050; 80053; 81003; 82570; 83690; 84156; 84550; 85025; 85610; 85730; 96360; 96372; 99283; J0702; J3475